=== PATIENT | male | born 1965 | race Caucasian/White ===

== ENCOUNTER 2022-03-17 17:02 | Inpatient (IN) | payer MEDICARE, SELFPAY ==
--- NOTE | ~2022-03-17 | XR_ITS ---
EXAMINATION: XR chest 1V portable Exam Date/Time: 03/17/2022 18:35 CDT CLINICAL HISTORY: CHF with swelling of extremities Comparison: None available. RESULT: Lines, tubes, and devices: Sternotomy wires. The inferior sternotomy wire appears to be fractured. Lungs and pleura: Clear. Cardiomediastinal silhouette: Enlarged cardiomediastinal silhouette. Other: No acute osseous or upper abdominal finding. IMPRESSION: Cardiomegaly. Reviewed, dictated and finalized at location K. IMPRESSION: Cardiomegaly.
--- NOTE | ~2022-03-17 | CT_ITS ---
CT OF LEFT LOWER EXTREMITY EXAMINATION: CT LE LT wo con DATE: 03/17/2022 20:52 INDICATION: TECHNIQUE: Computed tomography (CT) of the left lower extremity was performed without intravenous con trast. Automated exposure control and iterative reconstruction technique were employed. The dose-pedro th product was 1496.02 mGy-cm. COMPARISON: None FINDINGS: Limitations: Motion. Bones: Decreased mineralization. No fracture or dislocation. No periosteal change or erosion. No lyti c or blastic lesions. Soft Tissues:Subcutaneous stranding in the thigh, leg, and foot, most pronounced along the anterior a nd lateral aspects and along the dorsal aspect of. No focal fluid collection. Fluid: Small volume knee joint fluid. No significant ankle effusion. IMPRESSION: Subcutaneous fat stranding in the thigh, leg, and foot which may represent edema or cellulitis. Early abscess formation or necrotizing infection cannot be excluded with this examination. Reviewed, dictated and finalized at location K. IMPRESSION: Subcutaneous fat stranding in the thigh, leg, and foot which may represent kendal a or cellulitis. Early abscess formation or necrotizing infection cannot be exc luded with this examination.
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
[2022-03-17 18:02] VITALS: BP 131/94; PULSE 91; RESP 20; TEMP 36.2; O2SAT 93
--- NOTE | 2022-03-17 18:26 | ECG_ITS ---
Measurements Intervals [place] Rate: 60 P: MI: 0 QRS: -49 QRSD: 182 T: 103 QT: 481 QTc: 482 Interpretive Statements ATRIAL FIBRILLATION RIGHT BUNDLE BRANCH BLOCK LEFT ANTERIOR FASCICULAR BLOCK CANNOT RULE OUT SEPTAL INFARCT, AGE INDETERMINATE BASELINE ARTIFACT- I, II, AVR, AVL, AVF, V1 ABNORMAL ECG Electronically Signed On 03-17-2022 20:05:32 CDT by Andrea Jung D.O.
[2022-03-17 18:54] LABS: Basophils Absolute Auto 0.15 K/mm3 (0.00-0.10); Basophils Percent Auto 1.1 % (0.0-1.0); Eosinophils Absolute Auto 0.32 K/mm3 (0.02-0.50); Eosinophils Percent Auto 2.4 % (1.0-6.0); Hematocrit 43.6 % (40.0-54.0); Hemoglobin 14.6 g/dL (14.0-18.0); Immature Granulocyte Absolute 0.09 K/mm3 (0.00-0.00); Immature Granulocyte Percent A 0.7 % (0.0-0.0); Lymphocytes Absolute Auto 2.46 K/mm3 (1.10-4.50); Lymphocytes Percent Auto 18.2 % (18.0-42.0); Mean Corpuscular HGB Conc 33.5 g/dL (32.0-36.0); Mean Corpuscular Hemoglobin 31.9 pg (27.0-31.0); Mean Corpuscular Volume 95.2 fL (78.0-102.0); Mean Platelet Volume 9.6 fl (8.7-11.0); Monocytes Absolute Auto 1.42 K/mm3 (0.10-0.90); Monocytes Percent Auto 10.5 % (2.0-11.0); Neutrophils Absolute Auto 9.1 K/mm3 (1.7-7.2); Neutrophils Percent Auto 67.1 % (50.0-70.0); Platelet Count Result 651 K/mm3 (150-420); Red Blood Count 4.58 M/mm3 (4.70-6.10); Red Cell Distribution Width 15.5 % (11.6-14.4); White Blood Count 13.5 K/mm3 (4.8-10.8)
[2022-03-17 19:06] LABS: INR 1.1; Partial Thromboplastin Time 32.8 SEC (23.90-30.70); Prothrombin Time 11.6 Seconds (9.50-12.10)
[2022-03-17 19:09] LABS: SARS-CoV-2 Ag Negative (Negative)
[2022-03-17 19:11] LABS: Lactic Acid Reflex 0.6 mmol/L (0.4-2.0)
[2022-03-17 19:13] LABS: Alanine Aminotransferase 26 U/L (16-63); Albumin Level 3.7 g/dL (3.4-5.0); Alkaline Phosphatase 138 U/L (46-116); Anion Gap 6 mmol/L (8-16); Aspartate Amino Transferase 22 U/L (15-37); Bilirubin,Total 2.2 mg/dL (0.00-1.00); Blood Urea Nitrogen 28 mg/dL (7-18); Carbon Dioxide 30 mmol/L (21-32); Chloride 100 mmol/L (98-108); Estimated CRCL calculation 66 ml/min; Estimated Glomerular Filt Rate 47; Glucose 90 mg/dL (70-99); NT Pro B Type Natriuretic Pept 2518 pg/mL (0-125); Osmolality Calculated 287 mOsm/kg (285-295); Sodium 136 mmol/L (136-145); Total Protein 7.5 g/dL (6.4-8.2)
[2022-03-17 19:14] LABS: Creatine Kinase 55 U/L (39-308); Lipase 93 U/L (73-393); Troponin I 26.4 ng/L (0.00-60.4)
--- NOTE | 2022-03-17 20:21 | PC.NURSE ---
pt removed monitoring equipment
[2022-03-17 20:24] LABS: Add Urine Microscopic? NO; Appearance Urine Clear (Clear); Bilirubin Urine Negative (Negative); Blood Urine Negative (Negative); Color Urine Light Yellow (Yellow); Glucose Urine UA Negative (Negative); Ketones Urine Negative (Negative); Leukocyte Esterase Ur Negative (Negative); Nitrate Urine Negative (Negative); Protein Urine Negative (Negative); Specific Grav Ur <= 1.005 (1.010-1.020); Urobilinogen Urine 0.2 mg/dL (0.2-1.0)
[2022-03-17 20:31] LABS: Amphetamine Screen Urine Negative (Negative); Barbiturate Screen Urine Negative (Negative); Benzodiazepines Screen Urine Negative (Negative); Cannabinoid Screen Urine Positive (Negative); Cocaine Screen Urine Negative (Negative); Methadone Screen Urine Negative (Negative); Opiate Screen Urine Positive (Negative); Phencyclidine Screen Urine Negative (Negative)
--- NOTE | 2022-03-17 22:06 | PC.NURSE ---
pt provided with sandwich and juice per erp request
--- NOTE | 2022-03-17 22:44 | PC.NURSE ---
brother called per pt request
[2022-03-17 23:29] VITALS: BMI 31.1
[2022-03-17] MEDS: methocarbamoL 500 MG TABLET PO (23:58)
[2022-03-17 23:59] VITALS: PULSE 64
[2022-03-17] MEDS: FUROSEMIDE 40 MG TABLET 80 MG PO (23:59)
[2022-03-17] MEDS: carvediloL 6.25 MG TABLET PO (23:59)
[2022-03-17] MEDS: SACUBITRIL/VALSARTAN 24-26 MG TABLET 1 TAB PO (23:59)
[2022-03-17] MEDS: APIXABAN 2.5 MG TABLET 5 MG PO (23:59)
[2022-03-18] VITALS: BP 122/83; PULSE 49; PULSE 64; RESP 20; TEMP 36.3; O2SAT 94
[2022-03-18] MEDS: HYDROcodone/acetaminophen (*CRX) 5-325 MG TABLET 1 TAB PO ×2 (00:06→08:09)
--- NOTE | 2022-03-18 00:37 | ADMGEN ---
This patient, Porfirio Nunez, was admitted to 2nd Floor Room 205-2. Patient was oriented to hospital policies and general routines including ID bracelet, bed and alarms, pain management, procedures, bathroom and other care routines, personal items, smoking policy, room service/diet, and visiting hours. Information on how to activate the Rapid Response Team has been discussed. Patient is encouraged to report perceived risks to care and to ask questions if he does not understand what he is told or what he should do.
[2022-03-18] MEDS: PREGABALIN (*CRX) 25 MG CAPSULE PO ×2 (00:42→08:25)
[2022-03-18 04:00] VITALS: BP 97/58; PULSE 45; PULSE 47; RESP 14; TEMP 37; O2SAT 93
[2022-03-18 05:04] LABS: Basophils Absolute Auto 0.16 K/mm3 (0.00-0.10); Basophils Percent Auto 1.5 % (0.0-1.0); Eosinophils Absolute Auto 0.31 K/mm3 (0.02-0.50); Eosinophils Percent Auto 2.9 % (1.0-6.0); Hematocrit 42.5 % (40.0-54.0); Hemoglobin 14.2 g/dL (14.0-18.0); Immature Granulocyte Absolute 0.07 K/mm3 (0.00-0.00); Immature Granulocyte Percent A 0.7 % (0.0-0.0); Immature Platelet Fraction Pct 3.9 % (1.0-7.0); Lymphocytes Percent Auto 15.9 % (18.0-42.0); Mean Corpuscular HGB Conc 33.4 g/dL (32.0-36.0); Mean Corpuscular Hemoglobin 32.1 pg (27.0-31.0); Mean Corpuscular Volume 95.9 fL (78.0-102.0); Mean Platelet Volume 9.5 fl (8.7-11.0); Monocytes Absolute Auto 1.41 K/mm3 (0.10-0.90); Monocytes Percent Auto 13.2 % (2.0-11.0); Neutrophils Percent Auto 65.8 % (50.0-70.0); Platelet Count Result 628 K/mm3 (150-420); Red Blood Count 4.43 M/mm3 (4.70-6.10); Red Cell Distribution Width 15.5 % (11.6-14.4); White Blood Count 10.7 K/mm3 (4.8-10.8)
[2022-03-18 05:12] LABS: Anion Gap 6 mmol/L (8-16); Blood Urea Nitrogen 27 mg/dL (7-18); Calcium 8.4 mg/dL (8.5-10.1); Carbon Dioxide 29 mmol/L (21-32); Chloride 101 mmol/L (98-108); Estimated CRCL calculation 70 ml/min; Estimated Glomerular Filt Rate 52; Glucose 103 mg/dL (70-99); Osmolality Calculated 287 mOsm/kg (285-295); Potassium 3.8 mmol/L (3.5-5.1); Sodium 136 mmol/L (136-145)
--- NOTE | 2022-03-18 06:26 | PC.NURSE ---
When patient was admitted, he was informed that the physician asked him to be placed on telemetry. patient stated that he would wear it, but don't come running in here every five minutes waking me up because my heart rate is in the 30's . Patient was asked if he typically had a slow heart rate, and he stated that he did. Patient's telemetry was typically in Atrial Fibrillation, with a rate in the 40s to 50s. The rate would occasionally drop down to the 30s and occasionally jump up to the 60s. During admission activities, he even jumped up to tachycardia, per charge nurse.
[2022-03-18 07:47] VITALS: BP 107/71; PULSE 38; RESP 14; TEMP 36.6; O2SAT 96
[2022-03-18 07:54] VITALS: PULSE 38
[2022-03-18 08:00] VITALS: PULSE 45
[2022-03-18] MEDS: APIXABAN 2.5 MG TABLET 5 MG PO (08:20)
[2022-03-18] MEDS: SACUBITRIL/VALSARTAN 24-26 MG TABLET 1 TAB PO (08:23)
[2022-03-18] MEDS: FUROSEMIDE 40 MG TABLET 80 MG PO (08:23)
[2022-03-18 08:25] VITALS: PULSE 61
[2022-03-18] MEDS: carvediloL 6.25 MG TABLET PO (08:25)
[2022-03-18] MEDS: methocarbamoL 500 MG TABLET PO (08:45)
--- NOTE | 2022-03-18 10:18 | PC.NURSE ---
Pt is discharging AMA. Pt is A/Ox3. Pt is aware that he needs to see his primary MD [facility]. Medications reviewed with pt. Home medications returned. RN instructed the pt regarding ABX that are prescribed. Dosage, times , duration and side effects. RN instructed pt regarding S&S of infection. RAC IV removed and telemetry DC'd. AMA paper signed.
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
--- NOTE | 2022-03-19 13:12 | PC.NURSE ---
Pt states he received and understood his instructions. Has no other comments.
== END 2022-03-18 10:35 | disposition left against medical advice (07) | DRG 603 ==
LOC: CHSED 17:23 → CHS2ND 22:27
PROVIDERS: Admitting Provider Internal Medicine; Emergency Provider Internal Medicine Critical Care Medicine; Visit Provider Internal Medicine
DX: L03.116 Cellulitis of left lower limb (principal); I11.0 Hypertensive heart disease with heart failure; I50.9 Heart failure, unspecified; I25.10 Atherosclerotic heart disease of native coronary artery without angina pectoris; Z95.1 Presence of aortocoronary bypass graft; Z87.828 Personal history of other (healed) physical injury and trauma; Z20.822 Contact with and (suspected) exposure to COVID-19; Z79.01 Long term (current) use of anticoagulants; Z79.899 Other long term (current) drug therapy; N28.9 Disorder of kidney and ureter, unspecified; G62.9 Polyneuropathy, unspecified; F17.210 Nicotine dependence, cigarettes, uncomplicated
CPT/HCPCS: 36415; 71045; 73700; 80048; 80053; 80307; 81003; 82550; 83605; 83690; 83880; 84484; 85025; 85055; 85610; 85730; 87040; 87426; 93005; 96365; 96375; 99285; A9270; C9803; J0692; J3370